=== PATIENT | male | born 1955 | race Caucasian/White ===

== ENCOUNTER 2022-09-20 10:22 | Outpatient (OUT) | payer MEDICARE, SELFPAY ==
[2022-09-21 04:07] LABS: PSA, Free 0.79 ng/mL; Prostate Specific Ag 4.8 ng/mL (0.0-4.0)
== END 2022-09-20 10:23 | disposition home or self-care (01) ==
LOC: LAB 10:27
PROVIDERS: PCP Family Medicine; Visit Provider Urology
DX: R97.20 Elevated prostate specific antigen [PSA] (principal)
CPT/HCPCS: 36415; 84153; 84154

== ENCOUNTER 2022-09-25 05:26 | Emergency (ER) | payer MEDICARE, SELFPAY ==
--- NOTE | 2022-09-25 06:02 | ED_ITS ---
HPI - CPR General Chief Complaint: Cardiac Arrest/CPR Stated Complaint: CARDIAC ARREST History of Present Illness HPI Narrative: Patient out with a friend angelita hanging out together in [place] and drinking. Friend was driving. Once he arrives to the patient's home, states the patient wo ke up from sleeping when he called his name. He then open the door and got out of the car. closed the door and took a couple of steps and then fell. States he ran around the car and he wouldn't wake up. He then tried to pick him up and that is when he noticed blood on his arm and called Squad. Squad arrived within minutes and found him in full arrest. 2 IVs established at the scene and he was intubated. CPR initiated and he recieved 4 rounds of 1mg epi and 1 amp of bicarb before arriving to the ER 50 minutes later. Asystole and PEA only rhythm per [facility]. Arrives here in full arrest. Monitor with Asystole. Has a lac occipital scalp. Review of Systems ROS Status of ROS other (not available. Full arrest) Examination Exam Primary Survey: Yes pulseless, Yes PEA, Yes asystole and Yes ET tube General: Yes normal body habitus and Yes overweight Head/Face: trauma/ injury noted (4cm lac occipital scalp) Eyes: Yes fixed dialated pupils Chest: Yes intact to palpation Circulation: Yes other (no heart tones) Respiratory: Yes equal breath sounds (ET tube in place and bagging easily) Gastrointestinal: Yes nondistended Extremities: Yes intact to palpation Skin: Yes no sign of injury Course Course Hospital Course: ACL protocol continued. Patient received another amp of bicarb and 1mg of epinephrine 5 times. Monitor remained either asystole or PEA. code called at 5:45AM MDM - Cardiac Arrest/CPR MDM Narrative Medical decision making narrative: patient arrives in full arrest. Despite aggressive intervention he remained in asystole and PEA. he also sustained a head injury and laceration to his occipital scalp. Only his friend who was out with him angelita is in the department. His friend is only aware of a history of HTN. He does not have phone numbers to call family. Nursing staff trying to locate phone #s of family and sourcing consultant will also be contacted discussed with the Fashion Photographer Dr Rodas. He states it is a witnessed arrest and would like us to contact Dr Nur who is the patient's PCP to see if he is willing to sign the certificate. Dr Nur knows the patient but states other than HTN he was healthy. Dr Nur uncomfortable signing the certificate. Dr Rodas Fashion Photographer re contacted. He will send over an complaint investigator Differential Diagnosis Differential diagnosis: Likely acute myocardial infarction, cardiac arrest, sudden cardiac and other (traumatic arrest) Critical Care Time Critical Care Time Attestation: impression: cardiac arrest head injury scalp lac Discharge Plan Discharge Patient Disposition: Date/Time: 09/25/22 05:45 Probable Cause of Probable Cause of : Cardiac arrest
--- NOTE | 2022-09-25 06:52 | PC.NURSE ---
[facility] Notified at 06:44, Referral Case # [id number]. They will call back in 1 hour.
--- NOTE | 2022-09-25 07:12 | PC.NURSE ---
699- [facility] called and asked to notify Brother Wicho of pt . Terrence reports that this residence is out of their jurisdiction. 709-[facility] office called and given brothers address to notify him. They also had called the [facility] to get in touch with Parents. As of 714- no call back by any family member.
--- NOTE | 2022-09-25 07:36 | PC.NURSE ---
Advanced Registered Nurse at bedside with pt and pt's friend.
--- NOTE | 2022-09-25 08:34 | PC.NURSE ---
Brother, Kerwin, has arrived with his . This RN and Marian, ER director, brought into conference room. Explained the events leading up to pt's . Eyeletter also at bedside wanting to speak with brother and his . Support provided
--- NOTE | 2022-09-25 08:51 | PC.NURSE ---
Pt's brother and his at bedside with log processor operator and pt's friend he was with last night. Pt's wallet given to pt's brother and . Grease Remover has ID for use of identification.
--- NOTE | 2022-09-25 21:32 | PC.NURSE ---
patient arrived via EMS in cardiac arrest. EMS states they had been coding pt for 50mins in field prior to arrival. pts friend stated they had gone out to a club for a few drinks , friend states after that he drove the patient home. states the patient got out of the car, shut the door, took a few steps and suddenly fell to the ground. pts friend got out of the vehicle and ran to pt when he observed bleeding from a laceration to the back of the patients head and noted the patient to not be breathing, at that time he called 911. EMS states upon their arrival patient was in asystole, they used ACLS protocol and coded pt for approx 50mins prior to arrival in this ER. pt arrives intubated and with two IVs established. this RN and code team took over code and followed ACLS protocols with dr duncan at bedside. dr duncan called time of at 0545. dr duncan notified the pts friend that had been waiting in the waiting room, friend states pt has parents but is unsure of their names or how to contact them. this RN found an emergency contact listed as the pts brother, attempted multiple times to reach brother but was unsuccessful and no voicemail box was established. this RN then contacted the [facility] office to have the hedis abstractor paged and inquired about possible relatives for the patient. dispatch at [facility] dept states they found, who they presumed to be, the pts parents and had [facility] department try to reach the parents. no success in reaching parents or brother have been made at this time. dr duncan spoke to both patients PCP dr pfeiffer and [facility] coroner. PCP raoul states patients only medical history was hypertension. [facility] coroner notified and stated he will send an utility bill complaints investigator to this ER. patient remains with all lines in place, nothing removed. patient has watch to left wrist and remains on patient. patients wallet and license given to ED director, Marian.
== END 2022-09-25 10:45 | disposition expired ==
PROVIDERS: Emergency Provider Internal Medicine; PCP Family Medicine
DX: I46.9 Cardiac arrest, cause unspecified (principal); S01.01XA Laceration without foreign body of scalp, initial encounter; S09.90XA Unspecified injury of head, initial encounter; W19.XXXA Unspecified fall, initial encounter; I10 Essential (primary) hypertension
CPT/HCPCS: 92950; 99285